=== PATIENT | male | born 1970 | race Two or more races ===

== ENCOUNTER 2018-06-30 21:44 | Emergency (ER) | payer BC, OTHER ==
[~2018-06-30] VITALS: Ht 180.3 cm; Wt 97.1 kg
--- NOTE | 2018-06-30 22:02 | NUR ---
BIB SELF C/O DIZZINESS & NEAR SYNCOPE AROUND 1900. HX OF FALL 2 MOS AGO PMD ORDERED TO HAVE MRI BRAIN, NON COMPLIANT. -KO. HX OF ANXIETY. PT IS AOX4, VSS, RESPIRATIONS EVEN AND UNLABORED. SKIN WARM TO TOUCH, DRY, INTACT. DENIES SOB, WEAKNESS, N/V. DENIES PAIN. STATES HE HAS BEEN UNDER A LOT OF STRESS AND LIFE CHANGES LATELY. READY FOR EVAL.
[2018-06-30 22:40] LABS: BASOPHILS % (AUTO) 0.5 % (0.0-2.0); EOSINOPHILS % (AUTO) 2.4 % (0.0-6.0); HEMATOCRIT 47 % (39-51); HEMOGLOBIN 15.8 g/dL (13.5-17.5); LYMPHOCYTES # (AUTO) 2.6 /CMM (0.8-4.8); LYMPHOCYTES % (AUTO) 25.6 % (20.0-44.0); MEAN CORPUSCULAR HGB CONC 33 g/dl (31.0-36.0); MEAN CORPUSCULAR VOLUME 84 fL (80-96); MONOCYTES # (AUTO) 0.4 /CMM (0.1-1.30); MONOCYTES % (AUTO) 3.5 % (2.0-12.0); PLATELET COUNT (AUTO) 191 /CMM (150-450); WHITE BLOOD COUNT (AUTO) 10.3 K/uL (4.3-11.0)
--- NOTE | 2018-06-30 22:45 | NUR ---
Patient is resting comfortably in bed. PROVIDED BLANKET FOR COMFORT. VSS
[2018-06-30 22:48] LABS: CALCIUM, SERUM 8.4 mg/dL (8.5-10.1); POTASSIUM 3.2 mmol/L (3.5-5.1)
[2018-06-30] MEDS ORDERED: POTASSIUM CHLORIDE 20 MEQ TAB.PRT.SR PO ONE ×2 (23:00→23:02)
--- NOTE | 2018-06-30 23:08 | NUR ---
Patient discharged to home in stable condition. Written and verbal after care instructions given. Patient verbalizes understanding of instruction.
[2018-06-30 23:09] VITALS: BP 128/70
== END 2018-06-30 23:09 | disposition home or self-care (01) ==
LOC: ER 21:45
DX: R55 Syncope and collapse (principal); F41.1 Generalized anxiety disorder; F41.0 Panic disorder [episodic paroxysmal anxiety]; E87.6 Hypokalemia; Z60.2 Problems related to living alone
CPT/HCPCS: 36415; 80048; 85025; 93005; 99284; A4606; Z7610

== ENCOUNTER 2018-07-10 16:12 | Emergency (ER) | payer BC ==
[~2018-07-10] VITALS: Ht 180.3 cm; Wt 86.6 kg
--- NOTE | 2018-07-10 16:18 | NUR ---
IV LINE STARTED BLOOD DRAWN AND SENT TO LAB.
[2018-07-10] MEDS ORDERED: ASPIRIN 81 MG TAB.CHEW PO ONE (16:30)
[2018-07-10 16:33] LABS: BASOPHILS # (AUTO) 0.1 /CMM (0.0-0.2); BASOPHILS % (AUTO) 0.9 % (0.0-2.0); EOSINOPHILS % (AUTO) 0.6 % (0.0-6.0); HEMATOCRIT 49 % (39-51); HEMOGLOBIN 16.8 g/dL (13.5-17.5); LYMPHOCYTES # (AUTO) 2.4 /CMM (0.8-4.8); LYMPHOCYTES % (AUTO) 21.6 % (20.0-44.0); MEAN CORPUSCULAR HGB CONC 34 g/dl (31.0-36.0); MEAN CORPUSCULAR VOLUME 84 fL (80-96); MONOCYTES # (AUTO) 0.5 /CMM (0.1-1.30); MONOCYTES % (AUTO) 4.1 % (2.0-12.0); NEUTROPHILS # (AUTO) 8.1 /CMM (1.8-8.9); NEUTROPHILS % (AUTO) 72.8 % (43.0-81.0); PLATELET COUNT (AUTO) 208 /CMM (150-450); RED BLOOD CELL COUNT(AUTO) 5.82 MIL/uL (4.5-6.0); WHITE BLOOD COUNT (AUTO) 11.1 K/uL (4.3-11.0)
--- NOTE | 2018-07-10 16:36 | NUR ---
DR GODWIN AT BEDSIDE FOR EVAL.
[2018-07-10] MEDS ORDERED: ASPIRIN 81 MG TAB.CHEW ONE (16:41)
--- NOTE | 2018-07-10 16:42 | NUR ---
RADIOLOGY AT BEDSIDE FOR CHEST XRAY.
[2018-07-10] MEDS ORDERED: LORAZEPAM INJ 2 MG/ML VIAL ONE (16:44)
[2018-07-10 16:48] LABS: CARBON DIOXIDE 23 mmol/L (21-32); CHLORIDE 102 mmol/L (98-107); CREATININE 0.9 mg/dL (0.6-1.3); GLUCOSE 97 mg/dL (74-106); POTASSIUM 3.4 mmol/L (3.5-5.1); SODIUM SERUM 139 mmol/L (136-145); UREA NITROGEN, BLOOD 11 mg/dL (7-18)
[2018-07-10] MEDS ORDERED: METOCLOPRAMIDE HCL 10 MG/2 ML VIAL ONE (16:52)
--- NOTE | 2018-07-10 16:53 | NUR ---
PT TO RADIOLOGY FOR HEAD CT SCAN VIA [facility].
[2018-07-10] MEDS ORDERED: METOCLOPRAMIDE HCL 10 MG/2 ML VIAL IV ONE (17:00)
[2018-07-10] MEDS ORDERED: LORAZEPAM INJ 2 MG/ML VIAL IV ONE (17:00)
--- NOTE | 2018-07-10 18:03 | NUR ---
PT SLEEPING IN BED. EASILY AROUSABLE. STILL C/O HEADACHE, CHEST PAIN FREE AT THIS TIME. ERMD AWARE.
[2018-07-10] MEDS ORDERED: DIAZEPAM 5 MG TABLET PO ONE (18:30)
[2018-07-10] MEDS ORDERED: KETOROLAC TROMETHAMINE INJ 30 MG/ML VIAL IV ONE (18:30)
[2018-07-10] MEDS ORDERED: KETOROLAC TROMETHAMINE INJ 30 MG/ML VIAL ONE (18:41)
[2018-07-10] MEDS ORDERED: DIAZEPAM 5 MG TABLET ONE (18:41)
--- NOTE | 2018-07-10 19:09 | NUR ---
REPORT GIVEN TO THOMAS MIR FOR JAE.
--- NOTE | 2018-07-10 19:10 | NUR ---
Received pt from ADEOLA Mcnulty. Pt is resting in bed at this time, appears calm but states he has headache, 8/10 on scale. Denies chest discomfort, no respiratory distress noted. Will continue to monitor.
--- NOTE | 2018-07-10 19:40 | NUR ---
Pt c/o of persistent headache, 8/10 on scale, unrelieved by toradol. Dr. Lafleur notified with order.
[2018-07-10] MEDS ORDERED: MORPHINE SULFATE INJ 4 MG/ML DISP.SYRIN ONE (19:42)
[2018-07-10] MEDS ORDERED: MORPHINE SULFATE INJ 2 MG/ML DISP.SYRIN IV ONE (20:00)
[2018-07-10 20:59] VITALS: BP 137/89
--- NOTE | 2018-07-10 21:00 | NUR ---
Patient discharged to home in stable condition. Written and verbal after care instructions , list of medications given and received in ED and prescription given. Patient verbalizes understanding of instruction.IV removed. Catheter intact and site benign. Pressure and 4x4 applied to site. No bleeding noted. Pt ambulatory with a steady gait
== END 2018-07-10 21:02 | disposition home or self-care (01) ==
LOC: ER 16:13
DX: F41.9 Anxiety disorder, unspecified (principal); F45.8 Other somatoform disorders; G47.00 Insomnia, unspecified; R51 Headache; F17.200 Nicotine dependence, unspecified, uncomplicated; Z60.2 Problems related to living alone
CPT/HCPCS: 36415; 70450-TC; 71045-TC; 80048-TC; 84484-TC; 85025-TC; A4216; A4606; J1885; J2060; J2270; J2765; Z7610

== ENCOUNTER 2018-07-19 03:05 | Inpatient (IN) | payer BC, MEDICAID ==
[2018-07-19] VITALS (18 sets, daily range): BP systolic 97–150; BP diastolic 59–92
[~2018-07-19] VITALS: Ht 172.7 cm; Wt 94.0 kg
--- NOTE | 2018-07-19 03:30 | NUR ---
20G IV ON RAC WEB SYSTEMS DEVELOPER. BLOOD DRAW DONE AND SAMPLE SENT TO LAB. URINE SAMPLE OBTAINED.
--- NOTE | 2018-07-19 03:30 | NUR ---
PT WAS BIB RA WITH A C/O ETOH. PT TOOK ATIVAN AND THEN TOOK A "COUPLE OF SHOTS". PT WAS FOUND WALKING AROUND THE OUTSIDE OF HIS APPT WITH HIS TOP ON AND NAKED FROM THE WAIST DOWN. PT WENT TO ER 3. PT WAS PLACED ON THE MONITOR AND CONTINUOUS PULSE OX. VSS
[2018-07-19 03:39] LABS: BASOPHILS % (AUTO) 0.3 % (0.0-2.0); EOSINOPHILS % (AUTO) 0.5 % (0.0-6.0); HEMATOCRIT 48 % (39-51); HEMOGLOBIN 15.9 g/dL (13.5-17.5); LYMPHOCYTES % (AUTO) 10.6 % (20.0-44.0); MEAN CORPUSCULAR HGB CONC 34 g/dl (31.0-36.0); MEAN CORPUSCULAR VOLUME 84 fL (80-96); MONOCYTES # (AUTO) 0.3 /CMM (0.1-1.30); MONOCYTES % (AUTO) 3.4 % (2.0-12.0); NEUTROPHILS # (AUTO) 8.2 /CMM (1.8-8.9); NEUTROPHILS % (AUTO) 85.2 % (43.0-81.0); PLATELET COUNT (AUTO) 196 /CMM (150-450); RED BLOOD CELL COUNT(AUTO) 5.64 MIL/uL (4.5-6.0); WHITE BLOOD COUNT (AUTO) 9.6 K/uL (4.3-11.0)
[2018-07-19 03:48] LABS: CALCIUM, SERUM 9.1 mg/dL (8.5-10.1); CARBON DIOXIDE 29 mmol/L (21-32); CHLORIDE 101 mmol/L (98-107); CREATININE 0.9 mg/dL (0.6-1.3); GLUCOSE 120 mg/dL (74-106); POTASSIUM 3.7 mmol/L (3.5-5.1); SODIUM SERUM 138 mmol/L (136-145); UREA NITROGEN, BLOOD 11 mg/dL (7-18)
[2018-07-19 03:53] LABS: ACETAMINOPHEN 52 ug/ml (10-30); ALANINE AMINOTRANSFERASE 33 U/L (12-78); ALBUMIN 4.3 g/dL (3.4-5.0); ALCOHOL, BLOOD < 3 mg/dL (0-0); ALKALINE PHOSPHATASE 75 U/L (46-116); ASPARTATE AMINOTRANSFERASE 15 U/L (15-37); BILIRUBIN,DIRECT 0.2 mg/dL (0.0-0.2); BILIRUBIN,TOTAL 0.6 mg/dL (0.2-1.0); SALICYLATE 3.5 mg/dL (2.8-20.0); TOTAL PROTEIN, SERUM 7.6 g/dL (6.4-8.2)
--- NOTE | 2018-07-19 04:54 | NUR ---
CALLED LAB RE: TYLENOL LEVEL REDRAW.
--- NOTE | 2018-07-19 05:49 | NUR ---
PT'S PMD IS DR. CROSS [facility]
--- NOTE | 2018-07-19 05:51 | NUR ---
DR CHANG SPOKE TO POISON CONTROL. PT TO GET MUCOMYST AND IS GOING TO ICU.
[2018-07-19] MEDS ORDERED: D5W IV SCH ×3 (06:00→11:00)
[2018-07-19] MEDS ORDERED: ACETYLCYSTEINE IV SCH ×3 (06:00→11:00)
[2018-07-19] MEDS ORDERED: ACETYLCYSTEINE IV 6,000 MG/30 ML VIAL IV ONE ×2 (06:13→06:18)
[2018-07-19] MEDS ORDERED: ACETYLCYSTEINE IV 0 MG in IV D5W 200 ML IV STA (06:20)
[2018-07-19] MEDS ORDERED: ACETYLCYSTEINE IV 0 MG in IV D5W 1,000 ML IV ONE (06:30)
[2018-07-19] MEDS ORDERED: ACETYLCYSTEINE IV 0 MG in IV D5W 500 ML IV ONE (06:30)
--- NOTE | 2018-07-19 06:55 | NUR ---
20G IV STARTED ON LEFT HAND.
--- NOTE | 2018-07-19 06:55 | NUR ---
PT IS IN A GOWN AND REC'D FRESH WARM BLANKETS. PT IS RESTING COMFORTABLY WITH NO S/S OF PAIN OR DISTRESS.
[2018-07-19] MEDS ORDERED: ONDANSETRON HCL/PF 4 MG/2 ML VIAL IVP PRN (07:00)
[2018-07-19] MEDS ORDERED: LORAZEPAM INJ 2 MG/ML VIAL IV PRN (07:00)
--- NOTE | 2018-07-19 07:08 | NUR ---
PT APPEARS TO BE RESTING COMFORTABLY WITH NO S/S OF PAIN OR DISTRESS. VSS.
--- NOTE | 2018-07-19 07:32 | NUR ---
REPORT GIVEN TO ADEOLA TOMPKINS - ICU
[2018-07-19] MEDS ORDERED: LORA-259 PO (07:41)
[2018-07-19] MEDS ORDERED: ACET-868 PO (07:41)
--- NOTE | 2018-07-19 07:50 | NUR ---
RN NOTES RECEIVED PT FROM ER IN ROOM 259 , LETHARGIC , AROUSABLE TO VOICE ,ON RA , RESPIRATION EVEN AND UNLABORED, NO SOB NOTED, O2 SAT 100%, ON TELE SR HR IN 80'S. R AC AND L HAND IV SITES G 20 INTACT, MUCOMYST RUNNING VIA L HAND IV SITE , PT IS NPO AT THIS TIME , REDNESS NOTED ON L ARM , PT STATED THEY ARE TATTOOS LINES . SR UP x3, CALL LIGHT WITHIN EASY REACH ,BED LOCKED AND IN LOWEST POSITION , CONTINUE TO MONITOR
--- NOTE | 2018-07-19 08:00 | NUR ---
RN NOTES SOME HISTORY INFORMATIONS RECEIVED FROM GIRLFRIEND WHO IS AT THE BEDSIDE.
[2018-07-19] MEDS: PANTOPRAZOLE 40 MG VIAL IV SCH (08:13)
[2018-07-19] MEDS: Potassium Chloride 20 MEQ in IV D5/0.45 NACL 1,000 ML IV PRN ×2 (09:29→23:12)
--- NOTE | 2018-07-19 12:00 | NUR ---
RN NOTES PT A/OX4, TALKING ON THE PHONE, DENIES ANY SUICIDAL ATTEMPT OR IDEATION . STATED WANTS TO GO HOME SOON HE CAN .
--- NOTE | 2018-07-19 13:00 | NUR ---
RN NOTES CALL RECEIVED FROM POISON CONTROL CENTER , RECOMMENDING TO CHECK TYLENOL LEVEL AND LFT TEST ONE HOUR BEFORE THE 3RD MUCOMYST TRANSFUSION AND IF THE LEVELS ARE NORMAL , PT DOES NOT NEED FURTHER INFUSION . ORDERED PLACED PER MD AND RECOMMENDATION ORDER .CONTINUE TO MONITOR .
--- NOTE | 2018-07-19 13:00 | NUR ---
RN NOTES CALL RECEIVED FROM PT'S FEMALE FRIEND , AND SHE STATED PT IS SUICIDAL AND SHE DOES NOT WANT HIM TO BE DISCHARGE FROM THE HOSPITAL . PT STEPHEN ANY SUICIDAL IDEATION OR ATTEMPTS . DR LAROSE NOTIFED , PT STATED I FEEL FINE AND TOOK MY PAIN MEDS FOR JOIN PAIN . PT IS A/Ox4 AT THIS TIME .CONTINUE TO MONITOR .
--- NOTE | 2018-07-19 15:44 | NUR ---
RN NOTES REPORT GIVEN TO ARLENE MIR FOR CONTINUITY OF CARE .
--- NOTE | 2018-07-19 16:00 | NUR ---
ICU/RN: Pt received in stable condition, IV meds infusing well. Denies SI. Good urine output noted.
--- NOTE | 2018-07-19 19:45 | NUR ---
ICU/ASSOCIATE DIRECTOR OF DEVELOPMENT RECEIVED REPORT FROM DAY SHIFT. SEE FLOWSHEET FOR ASSESSMENT AND ANY SKIN ISSUES. CALL LIGHT WITHIN REACH. ADDRESSED THE PLAN OF CARE WITH PT FOR THE NEXT 24 HRS AND WHAT TO EXPECT.
--- NOTE | 2018-07-19 20:40 | NUR ---
ICU/CONSUMER LOAN OFFICER DR FRANCIS CAME TO SEE PT. NO NEW ORDERS RECEIVED. DID ASK DR ABOUT PSYCH CONSULT DUE TO THE O/D. PT VERBALIZED THAT HE THINKS THIS WAS DONE TO HIM VS PT DOING THIS TO HIMSELF. SAID SHE WILL HAVE PSYCH CONSULT DONE TOMORROW.
[2018-07-20] VITALS (16 sets, daily range): BP systolic 95–151; BP diastolic 28–86
--- NOTE | 2018-07-20 02:10 | NUR ---
ICU/DEFENCE FORCE SENIOR OFFICER LAB WAS CALLED TO ORDER LFT AND TYLENOL LEVEL STAT. AWAIT ANY ABNORMAL LEVELS
[2018-07-20 03:05] LABS: ALBUMIN 3.2 g/dL (3.4-5.0); BILIRUBIN,DIRECT 0.1 mg/dL (0.0-0.2); BILIRUBIN,TOTAL 0.4 mg/dL (0.2-1.0); TOTAL PROTEIN, SERUM 6.3 g/dL (6.4-8.2)
--- NOTE | 2018-07-20 03:21 | NUR ---
ICU/SCALE BALANCER LFT AND TYLENOL LEVEL RESULTED AWAIT FOR POISON CONTROL TO CALL WITH NEW ORDERS.
--- NOTE | 2018-07-20 03:48 | NUR ---
ICU/CHIEF CHEMIST POISON CONTROL WAS CALLED ) GAVE TYLENOL LEVEL OF 0 WITH AST 6 AND ALT 21. ANTOLIN SMILEY SAID THAT THERE IS NO NEED TO CONTINUE TO IV FLUIDS MUCOMYST ARE NO LONGER NECESSARY. SHOULD IF THERE IS ANY ISSUE THEN CALL BACK.
--- NOTE | 2018-07-20 07:15 | NUR ---
RECEIVED CARE OF PATIENT FROM BEAU TABARES. PATIENT AWAKE AND ALERT. DENIES SOB, DIFFICULTY BREATHING, PAIN. IV SITES C/D/I/P WITH IVF RUNNING PER MD ORDER. PATIENT VSS. TYLENOL LEVEL THIS AM 0 PER RAYSA IV MUCOMYST DC'D EARLIER AND COMPLETED. PATIENT STATES HE REMEMBERS TAKING A SLEEPING PILL AND STATES HE TOOK TYLENOL, MOTRIN BECAUSE HE HAD SOME DRINKS AND THIS IS WHAT HIS DR TOLD HIM TO DO TO PREVENT A HANG OVER. SAFETY, SKIN, ASPIRATION PRECAUTIONS IN PLACE AND WILL MONITOR
[2018-07-20] MEDS: PANTOPRAZOLE 40 MG VIAL IV SCH (09:59)
--- NOTE | 2018-07-20 13:00 | NUR ---
report given to [facility] med surg room 308
--- NOTE | 2018-07-20 13:56 | NUR ---
care endorsed and patient taken to room 308-1 med surg
--- NOTE | 2018-07-20 14:00 | NUR ---
MS SOLAR/RENEWABLE ENERGY SALES NOTES: RECEIVED PT FROM ICU NURSE IN STABLE CONDITION. PT IS A.O X4. NO SOB OR ACUTE SIGNS OF DISTRESS NOTED. BREATHING IS EVEN AND UNLABORED. MULTIPLE IVS NOTED TO BE PATENT AND INTACT. NO REDNESS OR SIGNS OF INFILTRATION NOTED. PT ORIENTED TO ROOM AND USE OF CALL LIGHT. BELONGINGS VERIFIED. BED IN LOW LOCKED POSITION, SIDE RAILS UP X2, CALL LIGHT WITHIN REACH. WILL CONTINUE TO MONITOR
--- NOTE | 2018-07-20 15:52 | NUR ---
MS MANAGER RETIREMENT NOTES PT WAS DISCHARGED HOME IN STABLE CONDITION. ALL NEEDS WERE MET DURING SHIFT AND ORDERS CARRIED OUT ACCORDINGLY. PRN CARE RENDERED. D/C INSTRUCTIONS REVIEWED WITH PT. HE VERBALIZED FULL UNDERSTANDING OF D/C INSTRUCTIONS. PT BELONGINGS ACCOUNTED FOR PRIOR TO D/C. PHOTOS TAKEN AND PLACED IN PT'S CHART. IVS WERE SUCCESSFULLY REMOVED. HE WAS SAFELY ESCORTED TO THE MAIN LOBBY AND LEFT VIA PRIVATE VEHICLE
== END 2018-07-20 15:40 | disposition home or self-care (01) | DRG 93 ==
LOC: ER 03:10 → ICU 06:25 → MED 07-20 13:28
PROVIDERS: ADMIT Internal Medicine; ATTEND Internal Medicine
DX: G92 Toxic encephalopathy (principal); T39.1X5A Adverse effect of 4-Aminophenol derivatives, initial encounter; Y92.018 Other place in single-family (private) house as the place of occurrence of the external cause; F41.1 Generalized anxiety disorder; F31.9 Bipolar disorder, unspecified; G47.00 Insomnia, unspecified; F41.0 Panic disorder [episodic paroxysmal anxiety]; Z82.49 Family history of ischemic heart disease and other diseases of the circulatory system; Z82.3 Family history of stroke; Z63.0 Problems in relationship with spouse or partner
CPT/HCPCS: 36415; 80048-TC; 80076-TC; 80305; 85025-TC; 87081-TC; C9113; G0378; G0480; J0132; J2060; J3480; J3490; J7060; J7070

== ENCOUNTER 2019-03-18 01:44 | Inpatient (IN) | payer BC, MEDICAID ==
[2019-03-18] VITALS (21 sets, daily range): BP systolic 114–156; BP diastolic 31–95
[~2019-03-18] VITALS: Ht 185.4 cm; Wt 94.3 kg
--- NOTE | 2019-03-18 02:01 | NUR ---
BIBF. C/O "TOOK A BUNCH OF PILLS FOR A HEADACHE. DRANK 2 SHOTS OF GAYATRI, FEELING FATIGUED" PT RESPONSIVE TO VERBAL + PAINFUL STIMULI. FAMILY AT BEDSIDE. RESPIRATIONS EVEN AND UNLABOURED.
[2019-03-18 02:11] LABS: BASOPHILS % (AUTO) 0.3 % (0.0-2.0); EOSINOPHILS % (AUTO) 0.4 % (0.0-6.0); HEMATOCRIT 47 % (39-51); HEMOGLOBIN 15.8 g/dL (13.5-17.5); LYMPHOCYTES # (AUTO) 1.4 /CMM (0.8-4.8); LYMPHOCYTES % (AUTO) 11.3 % (20.0-44.0); MEAN CORPUSCULAR HGB CONC 34 g/dl (31.0-36.0); MEAN CORPUSCULAR VOLUME 86 fL (80-96); MONOCYTES # (AUTO) 0.4 /CMM (0.1-1.30); MONOCYTES % (AUTO) 3.5 % (2.0-12.0); NEUTROPHILS # (AUTO) 10.4 /CMM (1.8-8.9); NEUTROPHILS % (AUTO) 84.5 % (43.0-81.0); PLATELET COUNT (AUTO) 185 /CMM (150-450); RED BLOOD CELL COUNT(AUTO) 5.49 MIL/uL (4.5-6.0); WHITE BLOOD COUNT (AUTO) 12.3 K/uL (4.3-11.0)
[2019-03-18 02:16] LABS: CALCIUM, SERUM 8.9 mg/dL (8.5-10.1); CARBON DIOXIDE 26 mmol/L (21-32); CHLORIDE 100 mmol/L (98-107); CREATININE 0.8 mg/dL (0.6-1.3); GLUCOSE 141 mg/dL (74-106); POTASSIUM 3.7 mmol/L (3.5-5.1); SODIUM SERUM 137 mmol/L (136-145); UREA NITROGEN, BLOOD 15 mg/dL (7-18)
[2019-03-18 02:24] LABS: APPEARANCE,URINE CLEAR (CLEAR); BILIRUBIN,URINE NEGATIVE (NEGATIVE); BLOOD, URINE NEGATIVE Ery/uL (NEGATIVE); COLOR,URINE YELLOW (YELLOW); KETONES,URINE TRACE (NEGATIVE); LEUKOCYTE ESTERASE ,URINE NEGATIVE (NEGATIVE); NITRITE, URINE NEGATIVE (NEGATIVE); PH,URINE 5.5 (5.0-8.0); PROTEIN,URINE NEGATIVE (NEGATIVE); UGLUCOSE NEGATIVE (NEGATIVE); UROBILINOGEN,URINE 0.2 EU/dL (0.2)
[2019-03-18 02:28] LABS: ACETAMINOPHEN 148 ug/ml (10-30); ALANINE AMINOTRANSFERASE 27 U/L (12-78); ALBUMIN 4.4 g/dL (3.4-5.0); ALCOHOL, BLOOD < 3 mg/dL (0-0); ALKALINE PHOSPHATASE 62 U/L (46-116); ASPARTATE AMINOTRANSFERASE 14 U/L (15-37); BILIRUBIN,DIRECT 0.2 mg/dL (0.0-0.2); BILIRUBIN,TOTAL 0.5 mg/dL (0.2-1.0); SALICYLATE 3.6 mg/dL (2.8-20.0); TOTAL PROTEIN, SERUM 7.5 g/dL (6.4-8.2)
[2019-03-18 02:29] LABS: BACTERIA,URINE Few /HPF (None Seen); SQUAMOUS EPITHELIAL CELL,UR Rare /HPF (None Seen)
[2019-03-18] MEDS ORDERED: ACETYLCYSTEINE IV 6,000 MG/30 ML VIAL IV ONE ×2 (02:54→04:33)
--- NOTE | 2019-03-18 02:55 | NUR ---
[facility].
[2019-03-18] MEDS ORDERED: ONDANSETRON HCL/PF - ER 4 MG/2 ML VIAL IV ONE (03:00)
[2019-03-18] MEDS ORDERED: ACETYLCYSTEINE IV SCH ×4 (03:00→09:00)
[2019-03-18] MEDS ORDERED: D5W IV SCH ×4 (03:00→09:00)
[2019-03-18] MEDS ORDERED: VENL37.55 PO (03:22)
[2019-03-18] MEDS ORDERED: ZOLP5TAB2 PO (03:22)
[2019-03-18] MEDS ORDERED: ATOR20TA PO (03:22)
[2019-03-18] MEDS ORDERED: ALPR0.5T PO (03:22)
[2019-03-18] MEDS ORDERED: MAGNESIUM HYDROXIDE 30 ML UDC PO PRN (03:30)
[2019-03-18] MEDS ORDERED: ZOLPIDEM TARTRATE 5 MG TABLET PO PRN (03:30)
[2019-03-18] MEDS ORDERED: MAG HYDROX/AL HYDROX/SIMETH 30 ML UDC PO PRN (03:30)
[2019-03-18] MEDS ORDERED: Z GUARD REMEDY 2 OZ OINT TP PRN (03:30)
[2019-03-18] MEDS ORDERED: ONDANSETRON HCL/PF 4 MG/2 ML VIAL ONE (03:43)
--- NOTE | 2019-03-18 04:00 | NUR ---
CRIMPING MACHINE OPERATOR FOR METALPAPER GOODS MACHINE OPERATOR NOTES RECEIVED PATIENT FROM ER [facility]IA [facility], DIAGNOSIS TYLENOL OVERDOSE. PATIENT ASLEEP, EYES CLOSED, LETHARGIC. PATIENT ABLE TO WAKE UP WHEN CALLED, ABLE TO ANSWER 1-2 QUESTIONS BEFORE DOZING BACK OFF TO SLEEP. PLAN OF CARE DISCUSSED ABLE WITH PATIENT, WHOM NODS YES TO UNDERSTANDING PLAN OF CARE. PLACED ON BEDSIDE SPRAY CEMENTER, SHOWING SINUS BRADYCARDIA. PATIENT ABLE TO UTILIZE URINAL. CALL LIGHT LEFT WITHIN EASY REACH, BED IN LOWEST AND LOCKED POSITION. PATIENT REFUSING TO REMOVE PANTS, UNABLE TO FULLY ASSESS SKIN, PATIENT DENIES ANY SKIN BREAKDOWN. RIGHT WRIST #20 AND LEFT AC #20 PATENT AND INTACT, ONGOING ACETADOTE GTT INFUSING WELL. CALL LIGHT LEFT WITHIN EASY REACH, BED IN LOWEST AND LOCKED POSITION. WILL CONTINUE TO CLOSELY MONITOR
[2019-03-18 04:12] LABS: ALBUMIN 4.4 g/dL (3.4-5.0); BILIRUBIN,DIRECT 0.1 mg/dL (0.0-0.2); BILIRUBIN,TOTAL 0.5 mg/dL (0.2-1.0); TOTAL PROTEIN, SERUM 7.6 g/dL (6.4-8.2)
--- NOTE | 2019-03-18 04:30 | NUR ---
ALARM INSTALLATION TECHNICIAN NOTES CLARIFIED ORDERS FOR ACETADOTE GTT WITH DR HUFFMAN. PER MD, ORDERS ARE ALREADY PLACED, TO INFUSE 3 BAGS TOTAL PER PROTOCOL. LOADING DOSE ALREADY GIVEN IN ER, MAINTENANCE DOSE TO BE ADMINISTERED HERE IN ICU
[2019-03-18] MEDS: ONDANSETRON HCL/PF 4 MG/2 ML VIAL IVP PRN (04:54)
--- NOTE | 2019-03-18 07:00 | NUR ---
METALSMITH CLOSING NOTES PATIENT RESTING IN BED, APPEARS COMFORTABLE, DENIES PAIN. PATIENT CONTINUES ON MAINTENANCE DOSE OF ACETADOTE GTT, IV SITE PATENT AND INTACT, FREE FROM ANY SIGNS AND SYMPTOMS OF INFILTRATION OR PHLEBITIS. WILL ENDORSE THE PATIENT TO THE AM SHIFT NURSE FOR CONTINUITY OF CARE
--- NOTE | 2019-03-18 07:45 | NUR ---
ICU/RN INITIAL NOTES,AM RECEIVED BESIDE REPORT. PT RESTING COMFORTABLY. PT ALERT, AWAKE, FOLLOWS COMMANDS. ON ROOM AIR, NO DISTRESS NOTED. SINUS ON TELE. URINAL AT BEDSIDE. ACETYLCYSTEINE DRIP INFUSING PER PROTOCOL. ALL NEEDS WILL BE ATTENDED TO, SAFETY MEASURES TAKEN, BED IN LOW POSITION, SIDE RAILS UP, CALL LIGHT WITHIN REACH.
--- NOTE | 2019-03-18 11:05 | NUR ---
ICU/RN: RECEIVED PHONE CALL FROM POISON CONTROL AND SPOKE TO SHELL. UPDATES GIVEN. RECOMMENDATIONS TAKEN AND DR. LAROSE INFORMED. NEW ORDERS RECEIVED FROM .
[2019-03-18 12:54] LABS: CALCIUM, SERUM 8.5 mg/dL (8.5-10.1); CREATININE 0.7 mg/dL (0.6-1.3); POTASSIUM 2.9 mmol/L (3.5-5.1)
[2019-03-18 16:22] LABS: CALCIUM, SERUM 8.9 mg/dL (8.5-10.1); CREATININE 0.8 mg/dL (0.6-1.3); POTASSIUM 3.3 mmol/L (3.5-5.1)
--- NOTE | 2019-03-18 18:00 | NUR ---
ICU/RN: EDWIN HENRIQUEZ AT BEDSIDE. UPDATES GIVEN. QUESTIONS ANSWERED
[2019-03-18 18:15] LABS: ALBUMIN 3.5 g/dL (3.4-5.0); BILIRUBIN,DIRECT 0.1 mg/dL (0.0-0.2); BILIRUBIN,TOTAL 0.5 mg/dL (0.2-1.0); TOTAL PROTEIN, SERUM 6.7 g/dL (6.4-8.2)
[2019-03-18] MEDS ORDERED: POTASSIUM CHLORIDE 20 MEQ TAB.PRT.SR PO ONE (18:30)
--- NOTE | 2019-03-18 18:56 | NUR ---
ICU/RN: ENDING NOTES,AM BEDSIDE REPORT WILL BE ENDORSED. VS STABLE. NO DISTRESS, ON ROOM AIR, FOLLOWS COMMANDS. SERIAL LABS ORDERED. POISON CONTROL ON CASE. ALL NEEDS ATTENDED TO, SAFETY MEASURES TAKEN, BED IN LOW POSITION, SIDE RAILS UP, CALL LIGHT WITHIN REACH. WILL CONTINUE CARE.
--- NOTE | 2019-03-18 19:30 | NUR ---
LABELING MACHINE OPERATOR INITIAL SHIFT NOTES RECEIVED PATIENT IN BED, AWAKE, ALERT AND ORIENTED X4 ABLE TO VERBALIZE NEEDS. PATIENT DENIES PAIN OR DISCOMFORT AT THIS TIME. TOLERATING ROOM AIR WELL, SPO2 WITHIN NORMAL RANGE, NO NOTED SHORTNESS OF BREATH OR RESPIRATORY DISTRESS NOTED, LUNG SOUNDS CLEAR UPON AUSCULTATION. BEDSIDE TELMETRY MONITORING SHOWS SINUS BRADYCARDIA, HR CURRENTLY 56 BPM AT THIS TIME. RIGHT WRIST AND LEFT AC IV PATENT AND INTACT, FLUSHED WITH NS, FREE FROM ANY SIGNS AND SYMPTOMS OF INFILTRATION OR PHLEBITIS, ONGOING IV INFUSION OF ACETADOTE MAINTENANCE GTT. CALL LIGHT LEFT WITHIN EASY REACH, BED IN LOWEST AND LOCKED POSITION. WILL CONTINUE TO CLOSELY MONITOR
[2019-03-18 19:51] LABS: CALCIUM, SERUM 8.6 mg/dL (8.5-10.1); CREATININE 0.9 mg/dL (0.6-1.3)
[2019-03-18 20:20] LABS: POTASSIUM 3.5 mmol/L (3.5-5.1)
--- NOTE | 2019-03-18 21:00 | NUR ---
RN NOTES PATIENT'S EDWIN HENRIQUEZ AT BEDSIDE. BOTH PATIENT AND FAMILY MEMBER UPDATED REGARDING LATEST LABS AND PLAN OF CARE, BOTH VERBALIZING UNDERSTANDING. ALL QUESTIONS ANSWERED ABLE. WILL CONTINUE TO CLOSELY MONITOR
--- NOTE | 2019-03-18 23:29 | NUR ---
EXPORT FREIGHT CLERK NOTES RECEIVED CALL FROM POISON CONTROL, SPOKE TO BURKE, UPDATE GIVEN REGARDING LATEST LAB VALUES.
[2019-03-19] VITALS (12 sets, daily range): BP systolic 98–158; BP diastolic 55–98
[2019-03-19 03:30] LABS: BASOPHILS # (AUTO) 0.1 /CMM (0.0-0.2); BASOPHILS % (AUTO) 0.8 % (0.0-2.0); EOSINOPHILS % (AUTO) 1.8 % (0.0-6.0); HEMATOCRIT 45 % (39-51); HEMOGLOBIN 15.6 g/dL (13.5-17.5); LYMPHOCYTES # (AUTO) 2.5 /CMM (0.8-4.8); LYMPHOCYTES % (AUTO) 23.9 % (20.0-44.0); MEAN CORPUSCULAR HGB CONC 34 g/dl (31.0-36.0); MEAN CORPUSCULAR VOLUME 86 fL (80-96); MONOCYTES # (AUTO) 0.5 /CMM (0.1-1.30); NEUTROPHILS # (AUTO) 7.2 /CMM (1.8-8.9); NEUTROPHILS % (AUTO) 68.5 % (43.0-81.0); PLATELET COUNT (AUTO) 163 /CMM (150-450); RED BLOOD CELL COUNT(AUTO) 5.31 MIL/uL (4.5-6.0); WHITE BLOOD COUNT (AUTO) 10.5 K/uL (4.3-11.0)
[2019-03-19 03:43] LABS: CALCIUM, SERUM 8.6 mg/dL (8.5-10.1); CREATININE 0.7 mg/dL (0.6-1.3); MAGNESIUM 1.9 mg/dL (1.8-2.4); POTASSIUM 3.6 mmol/L (3.5-5.1)
[2019-03-19 03:47] LABS: ALBUMIN 3.4 g/dL (3.4-5.0); BILIRUBIN,DIRECT 0.1 mg/dL (0.0-0.2); BILIRUBIN,TOTAL 0.6 mg/dL (0.2-1.0); TOTAL PROTEIN, SERUM 6.5 g/dL (6.4-8.2)
[2019-03-19 07:44] LABS: CALCIUM, SERUM 8.8 mg/dL (8.5-10.1); CREATININE 0.7 mg/dL (0.6-1.3); POTASSIUM 3.7 mmol/L (3.5-5.1)
--- NOTE | 2019-03-19 07:44 | NUR ---
EATING DISORDER SPECIALIST INITIAL NOTES PT RECEIVED IN STABLE CONDITION. A/O X4. NO SOB OR ACUTE SIGNS OF DISTRESS NOTED. BREATHING IS EVEN AND UNLABORED. HE DENIES PAIN AT THIS TIME. HE IS NOTED TO BE SINUS SONYA ON THE MONITOR WITH A HR OF 55. PERIPHERAL IVs NOTED TP BE PATENT AND INTACT. NO REDNESS OR SIGNS OF INFILTRATION NOTED. BED IN LOW LOCKED POSITION, SIDE RAILS UP X2, CALL LIGHT AND URINAL WITHIN REACH. WILL CONTINUE TO MONITOR
--- NOTE | 2019-03-19 09:57 | NUR ---
BACK HOE OPERATOR NOTE: POISON CONTROL FOLLOW UP CALL RECEIVED FROM POISON CONTROL SLEEP MEDICINE PHYSICIAN JAZLYN. UPDATED ON PT'S RECENT LABS AND PLAN OF CARE. PER REP PT'S CASE IS NO LONGER CRITICAL AND MAY BE CLOSED
--- NOTE | 2019-03-19 10:00 | NUR ---
PT MAY BE DOWNGRADED TO MED-SURG PER DR LAROSE
[2019-03-19] MEDS: ONDANSETRON HCL/PF 4 MG/2 ML VIAL IVP PRN (10:50)
[2019-03-19 11:50] LABS: CALCIUM, SERUM 8.8 mg/dL (8.5-10.1); CREATININE 0.9 mg/dL (0.6-1.3); POTASSIUM 3.9 mmol/L (3.5-5.1)
--- NOTE | 2019-03-19 13:28 | NUR ---
APPLICATION SECURITY ARCHITECT NOTES: PSYCH EVAL F/U [facility] CALLED. BELLY ROLLER CONFIRMED THAT PT'S FACE SHEET WAS RECEIVED AND WILL BE SEEN BY DR. RIDER LATER THIS AFTERNOON
--- NOTE | 2019-03-19 13:31 | NUR ---
COUNTERSINKER BALANCE SCREW HOLE NOTES: [facility] PT INFO ER DOCUMENTS RECEIVED FROM [facility] REQUESTED BY DR. LAROSE. NO NOTES IN REGARDS TO WHY PT LEFT ER WERE RECEIVED. MADE AWARE
--- NOTE | 2019-03-19 13:36 | NUR ---
PT TRANSFERRED TO [facility] OVER FLOW. REPORT GIVEN TO MAXIMINO MIR FOR JAE. ALL BELONGINGS TAKEN BY PT.
--- NOTE | 2019-03-19 13:45 | NUR ---
RECEIVED PT TRANSFER FROM ICU -PT IS ALERT AND ORIENTED X4.VERBALLY RESPONSIVE.AMBULATES AD PRESTON WITH STEADY GAIT. PT'S MEDICAL RECORD FROM [facility] IS AT THE CHART.PT IS SEEN BY DR REBOLLEDO RIGHT NOW FOR PSYCH CONSULT DUE TO TYLENOL OVERDOSE.WILL MONITOR.
--- NOTE | 2019-03-19 14:00 | NUR ---
PT COMFORTABLY RESTING IN BED,WATCHING TV. DENYING ANY DISCOMFORT.FRIEND AT THE BEDSIDE.CALL LIGHT PLACED WITHIN REACH.
--- NOTE | 2019-03-19 14:15 | NUR ---
Social service consult requested by Dr. Chapman for Tylenol Overdose. Pt. is 48 year old male who was admitted to [facility] for acetaminophen overdose. SW met with pt. and his friend Berenice aden. Pt. inquired with pt. if he wanted Berenice to be in the room during the assessment and pt. 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 Pt. started taking Tylenol and Ibuprofen to relieve his pain. Pt. stated he didn't realize he had taken more than the recommended dosage. Pt. had also had a shot of Korean Cognac that his friend had given him. Pt. denies suicidal ideations and stated he wasn't and isn't suicidal. Pt. had a similar incident in July 2018 where he was hospitalized for a similar incident. Pt. denies drug use. Pt. states he drinks alcohol socially. Pt. stated he was given medication for Depression in July but cannot seem to remember it's name. Pt. does take Xanax prn. NO other social service needs are requested at this time. SW is available, if needed.
--- NOTE | 2019-03-19 14:36 | NUR ---
AWAITING FOR CRISIS TEAM TO CLEAR THE PT IF PT IS OK TO BE DISCHARGE
[2019-03-19 16:19] LABS: CALCIUM, SERUM 9.4 mg/dL (8.5-10.1); CREATININE 0.8 mg/dL (0.6-1.3); POTASSIUM 3.9 mmol/L (3.5-5.1)
--- NOTE | 2019-03-19 17:00 | NUR ---
PT WAS CLEARED BY CRISIS TEAM,ADEOLA DENTON AND CHRIS CALLED DR REBOLLEDO CLEARING PT FOR DISCHARGE HOME. NOTIFIED DR LAROSE ALSO FOR CLEARANCE FRO PSYCH CRISIS TEAM FOR DISCHARGE HOME WITH ORDERS TO DC PT HOME AND ADEOLA PEREZ GAVE PT PSYCHIATRIST REFERRALS FOR OUTPATIENT THERAPY.
--- NOTE | 2019-03-19 17:30 | NUR ---
DISCHARGE PT HOME WITH STABLE V/S ACCOMPANIED BY HIS BEST FRIEND .WITH NO SI/HI/AVH EPISODES. NO C/O PAIN OR DISTRESS.AMBULATED AD PRESTON WITH STEADY GAIT AND NEUROCHECK WNL.
== END 2019-03-19 17:30 | disposition home or self-care (01) | DRG 918 ==
LOC: ER 01:46 → ICU 02:56 → MEDSG2 03-19 12:00
PROVIDERS: ADMIT Family Medicine; ATTEND Internal Medicine
DX: T39.1X1A Poisoning by 4-Aminophenol derivatives, accidental (unintentional), initial encounter (principal); D72.829 Elevated white blood cell count, unspecified; F32.9 Major depressive disorder, single episode, unspecified; Y92.89 Other specified places as the place of occurrence of the external cause; R73.9 Hyperglycemia, unspecified; F41.0 Panic disorder [episodic paroxysmal anxiety]; F17.210 Nicotine dependence, cigarettes, uncomplicated
CPT/HCPCS: 36415; 70450-TC; 71045-TC; 80048-TC; 80061-TC; 80076-TC; 80305; 81000-TC; 82140-TC; 83735-TC; 84100-TC; 85025-TC; 85610-TC; 87081-TC; G0378; G0480; J0132; J2405; J7060; J7070